=== PATIENT | female | born 1990 | race Caucasian/White ===

== ENCOUNTER 2019-10-31 18:35 | Emergency (ER) | payer SELFPAY ==
[2019-10-31 19:03] VITALS: BMI 28.3
--- NOTE | 2019-10-31 19:06 | ED_ITS ---
HPI - Fall General: Chief Complaint: Fall Stated Complaint: FELL, HIT HEAD Time Seen by Provider: 10/31/19 19:06 History of Present Illness: HPI Narrative: Patient is a 28-year-old female who comes to the ED after having a fall and hitting her head. Patient States she feels like she is having some brain fog and trouble concentrating or focusing after fall. Patient does have a headache and she rates as 7/10. Fall occurred in the early evening. Patient states she wasn't feeling well and only had a small amount of eggs for breakfast That was all she ate all day. Patient denies fever, chills, abdominal pain, chest pain, shortness of breath, nausea, vomit ing, dysuria, hematuria, bowel symptoms. Patient does not have any numbness or tingling or weakness to extremities. Review of Systems General: Reports: 10 or more systems reviewed and unremarkable except in HPI and below PFSH ED PFSH: Statuses (acute, chronic, etc) shown below reflect problem list status as previously entered and may not be historically accurate Social History Smoking and tobacco status: never smoked Physical Exam Const: COMMON NORMALS: oriented x3 HENMT: COMMON NORMALS: normocephalic HEAD & SCALP: normocephalic, contusion (Small contusion on center of forehead just above the hairline.) and scalp lesion (Small abrasions on vertex of scalp. Superficial and not actively bleeding.); no Ocampo's sign FACE & SINUS: sinus tenderness maxillary (Mild Left side) MOUTH: oral and palatal mucosa normal THROAT: posterior oropharynx normal and uvula midline Neck/C-Spine: COMMON NORMALS: supple GENERAL: Yes normal visual inspection Resp: COMMON NORMALS: normal respiratory effort, no retractions, no use of acc essory muscles and clear to auscultation bilaterally AUSCULTATION: clear to auscultation bilaterally Cardio: COMMON NORMALS: regular rate, regular rhythm, S1 normal heart sound, S2 normal heart sound, no gallops, no clicks, no murmurs and peripheral pulses 2+ throughout RATE: regular rate RHYTHM: regular rhythm HEART SOUNDS: S1 normal and S2 normal PERIPHERAL PULSES: pulses 2+ throughout GI: COMMON NORMALS: normal to inspection, nondistended, normoactive bowel sounds, soft to palpation, non-tender and no masses PALPATION: Yes soft : COMMON NORMALS: Yes no CVA tenderness BLADDER/KIDNEY EXAM: Yes no CVA tenderness Back/Pelvis: COMMON NORMALS: no CVA tenderness Neuro: COMMON NORMALS: oriented x3, CN's II-XII intact bilaterally, moves all extremities, no focal motor deficits and no sensory deficits noted SENSORY EXAM: Yes extremities (intact) MOTOR EXAM: strength 5/5 throughout Course Vital Signs: Vital signs: Vital Signs Temperature 98.4 F 10/31/19 22:03 Pulse Rate 88 10/31/19 22:03 Respiratory Rate 14 10/31/19 22:03 Blood Pressure 98/64 10/31/19 22:03 Pulse Oximetry 98 10/31/19 22:03 MDM - Fall Lab Data: Attestation: I reviewed the patient's lab results. Labs: Lab Results 10/31/19 10/31/19 Range/Units 20:43 20:43 HCG, Qual Negative (Negative) Urine Color Autumn (Yellow) Urine Appearance Clear (CLEAR) Urine pH 5 (5-7) Ur Specific Gravit y 1.030 (1.005-1.030) Urine Protein 1+ H (Negative) Urine Glucose (UA) Norm (Normal) Urine Ketones 3+ H (Negative) Urine Occult Blood 2+ H (Negative) Urine Nitrate Negative (Negative) Urine Bilirubin 1+ H (NEGATIVE) Urine Urobilinogen 4 H (Negative) mg/dL Ur Leukocyte Nellie ase Negative (Negative) Urine RBC 0-4 H (0-2) /hpf Urine WBC 5-10 H (0-5) /hpf Ur Squamous Epith Cells 5-10 H (0-5) Urine Bacteria 1+ H (NONE) Urine Mucus 2+ Imaging Data^: CT Head: Attestation: I personally reviewed and interpreted this imaging study as follows: Radiologist's impression: [address] [place] [address] CT Scan Report Signed Patient: Salma Vazquez Unit #: [id number] : 1990 Age/Sex: 28 / F ADM Date: 10/31/19 Loc: ER Room/Bed: Attending Dr: Ordering Provider/Ordering MD: Carlos Calderon Date of Service: 10/31/19 Procedure(s): CT head wo con* [id number] Accession Number(s): [id number] Report Number: [id number] PROCEDURE INFORMATION: Exam: CT Head Without Contrast Exam date and time: 10/31/2019 8:42 PM Age: 28 years old Clinical indication: Injury or trauma; Fall; Initial encounter; Concussion / head injury; Without loss of consciousness; Additional info: Fall and hit head TECHNIQUE: Imaging protocol: Computed tomography of the head without contrast. Axial, coronal and sagittal reformatted images were created and reviewed. Total DLP: 818.43 mGy-cm Radiation optimization: All CT scans at this facility use at least one of these dose optimization techniques: automated exposure control; mA and/or kV adjustment per patient size (includes targeted exams where dose is matched to clinical indication); or iterative reconstruction. COMPARISON: No relevant prior studies available. FINDINGS: Brain: No CT evidence of acute intracranial hemorrhage or acute territorial infarction. No significant mass effect or midline shift. Basal cisterns patent. Ventricles: Normal in size and configuration. Bones/joints: No acute osseous abnormality. Sinuses: Mild ethmoid and right inferior frontal sinus mucosal thickening. Partial opacification of the left sphenoid sinus. Mastoid air cells: Grossly unremarkable. Soft tissues: Grossly unremarkable. CT/CT head wo con* [id number] IMPRESSION: 1. No CT evidence of acute intracranial pathology. 2. Additional findings, as above. Radiation Dose CTDIVOL = (mGy): DLP = 818.43 (mGy-cm) Dictated By: Naveed Coy MD Signed By: Naveed Coy MD Signed Date/Time: 2114 DD/ 14 Discharge Plan Discharge Patient Disposition: Home, Self-Care Clinical Impression: Concussion Qualifiers: Encounter type: initial encounter Loss of consciousness presence/duration: with LOC of 30 min or less Qualified Code(s): S06.0X1A - Concussion with loss of consciousness of 30 minutes or less, initial encounter Condition: Stable Prescriptions: No Action No Known Home Medications RF: 0 Discharge Orders: Discharge Order (Routine); Ordered 10/31/19 Ordered By: Carlos Calderon Discharge Diet: Regular Discharge Activity: Increase activity as tolerated Patient Instructions: Concussion (ED) Activity Restrictions/Additional Instructions: Follow-up with PCP in 7 days for reevaluation. Take ibuprofen or Tylenol as needed for headache. Rest and drink plenty of fluids. Take a break from activities that cause increased concentration and stress on the brain such as reading, looking at her phone number TV screens. 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
--- NOTE | 2019-10-31 20:37 | CTR_ITS ---
PROCEDURE INFORMATION: Exam: CT Head Without Contrast Exam date and time: 10/31/2019 8:42 PM Age: 28 years old Clinical indication: Injury or trauma; Fall; Initial encounter; Concussion / head injury; Without loss of consciousness; Additional info: Fall and hit head TECHNIQUE: Imaging protocol: Computed tomography of the head without contrast. Axial, coronal and sagittal reformatted images were created and reviewed. Total DLP: 818.43 mGy-cm Radiation optimization: All CT scans at this facility use at least one of these dose optimization techniques: automated exposure control; mA and/or kV adjustment per patient size (includes targeted exams where dose is matched to clinical indication); or iterative reconstruction. COMPARISON: No relevant prior studies available. FINDINGS: Brain: No CT evidence of acute intracranial hemorrhage or acute territorial infarction. No significant mass effect or midline shift. Basal cisterns patent. Ventricles: Normal in size and configuration. Bones/joints: No acute osseous abnormality. Sinuses: Mild ethmoid and right inferior frontal sinus mucosal thickening. Partial opacification of the left sphenoid sinus. Mastoid air cells: Grossly unremarkable. Soft tissues: Grossly unremarkable. CT/CT head wo con* [id number] IMPRESSION: 1. No CT evidence of acute intracranial pathology. 2. Additional findings, as above. Radiation Dose CTDIVOL = (mGy): DLP = 818.43 (mGy-cm)
[2019-10-31] MEDS: acetaminophen 500 mg Tablet PO (20:48)
[2019-10-31 21:33] LABS: Blood Urine 2+ (Negative); Glucose Urine UA Norm (Normal); Ketones Urine 3+ (Negative); Protein Urine 1+ (Negative); Urine Appearance Clear (CLEAR); Urine Color Amber (Yellow); pH Urine 5 (5-7)
[2019-10-31 21:34] LABS: Add Urine Microscopic? YES; Bacteria Urine 1+; Bilirubin Urine 1+ (NEGATIVE); Leukocyte Esterase Urine Negative (Negative); Mucus Urine 2+; Nitrate Urine Negative (Negative); RBC Urine 0-4 /hpf (0-2); Urobilinogen Urine 4 mg/dL (Negative)
[2019-10-31 21:35] LABS: Add Urine Culture? No
[2019-10-31 21:40] LABS: HCG Qualitative Urine. Negative (Negative)
[2019-10-31 22:03] VITALS: BP 98/64; PULSE 88; RESP 14; TEMP 36.9; O2SAT 98
== END 2019-10-31 22:04 | disposition home or self-care (01) ==
PROVIDERS: Emergency Provider Physician Assistant
DX: S06.0X1A Concussion with loss of consciousness of 30 minutes or less, initial encounter (principal); W19.XXXA Unspecified fall, initial encounter
CPT/HCPCS: 70450; 81001; 81025; 99281; 99283